=== PATIENT | female | born 1945 | race African-American/Black ===

== ENCOUNTER 2021-11-05 13:20 | Inpatient (IN) | payer MEDICARE, BC ==
[~2021-11-05] VITALS: Ht 157.5 cm; Wt 57.4 kg
[2021-11-05] MEDS ORDERED: SODIUM CHLORIDE 0.9% 1,000 ML IV ONE (14:15)
[2021-11-05 14:28] LABS: Basophils # (auto) 0.1 10 ^3/uL (0-0.2); Basophils % (auto) 1.5 % (0.0-2.0); Eosinophils # (auto) 0 10 ^3/uL (0-0.8); Eosinophils % (auto) 0.6 % (0.0-7.0); Hematocrit 36.3 % (36.0-46.0); Hemoglobin 11.7 g/dL (12.2-16.2); Lymphocytes # (auto) 1.1 10 ^3/uL (0.4-5.4); Mean Corpuscular Hgb Conc. 32.1 g/dL (32.0-36.0); Mean Corpuscular Volume 84.1 fL (80.0-100.0); Monocytes # (auto) 0.3 10 ^3/uL (0-1.3); Monocytes % (auto) 8.9 % (0.0-12.0); Neutrophils # (auto) 2.3 10 ^3/uL (1.6-8.6); Red Blood Cells 4.32 10^6/uL (4.0-5.20); Red Cell Distribution Width 14.7 % (11.8-14.3); White Blood Cell 3.9 10^3/uL (4.4-10.8)
[2021-11-05 14:41] LABS: Albumin 3.7 g/dL (3.4-5.0); Calcium 9.8 mg/dL (8.5-10.1); Potassium 3.8 mmol/L (3.5-5.1)
[2021-11-05 14:44] LABS: BUN/Creatinine Ratio 21.8; Bilirubin, Total 0.5 mg/dL (0.2-1.0); Total Protein 7.9 g/dL (6.4-8.2)
[2021-11-05 15:28] LABS: Urine Bacteria NONE SEEN /hpf (None Seen); Urine Blood Negative /uL (Negative); Urine Specific Gravity 1.022 (1.001-1.035); Urine WBC 20 /hpf (0 - 5)
[2021-11-05] MEDS ORDERED: cefTRIAXone 1GM/50ML D5W 50 ML IV ONE (16:00)
[2021-11-05] MEDS ORDERED: MORPHINE SULFATE INJECTION 2 MG/ML SYRG IV PRN ×2 (17:30→19:30)
[2021-11-05] MEDS ORDERED: NITROGLYCERIN 0.4 MG SL TAB SL PRN (17:30)
[2021-11-05] MEDS ORDERED: HYDROcodone-ACET 5/325MG TAB PO ONE (19:30)
[2021-11-05] MEDS ORDERED: FAMOTIDINE (10MG/ML) 2ML VL IV ONE (19:30)
[2021-11-05] MEDS ORDERED: ACETAMINOPHEN 325 MG TAB PO PRN (19:30)
[2021-11-05] MEDS ORDERED: LORazepam 0.5 MG TAB PO PRN (19:30)
[2021-11-05] MEDS ORDERED: DOCUSATE SOD 100 MG CAP PO PRN (19:30)
[2021-11-05] MEDS ORDERED: MIDODRINE HCL 10 MG TAB PO PRN (19:30)
[2021-11-05] MEDS ORDERED: ONDANSETRON HCL 4 MG/2 ML VIAL IV PRN (19:30)
[2021-11-05] MEDS ORDERED: hydrALAZINE HCL 20 MG/ML VL IV PRN (19:30)
[2021-11-05] MEDS ORDERED: HYDROcodone-ACET 5/325MG TAB PO PRN (19:30)
[2021-11-05 20:16] LABS: Magnesium 1.8 mg/dL (1.6-2.6)
[2021-11-05 20:19] LABS: Phosphorus 2.8 mg/dL (2.5-4.90)
[2021-11-05] MEDS: SODIUM CHLORIDE 0.9% 1,000 ML IV SCH ×2 (20:41→22:08)
[2021-11-05 21:09] LABS: INR 1.12 (0.9-1.15); Partial Thromboplastin Time 28.5 sec (23.6-33.0)
[2021-11-05 22:00] VITALS: BP 148/67
[2021-11-05] MEDS ORDERED: ATORVASTATIN 20 MG TAB PO SCH (22:00)
[2021-11-05] MEDS: ENOXAPARIN SOD 40 MG/0.4 ML SYRINGE SC SCH (22:09)
[2021-11-05] MEDS: AMANTADINE HCL 100 MG CAP PO SCH (22:31)
[2021-11-06] VITALS (9 sets, daily range): BP systolic 90–172; BP diastolic 52–92
[2021-11-06 05:58] LABS: Basophils # (auto) 0 10 ^3/uL (0-0.2); Basophils % (auto) 0.9 % (0.0-2.0); Eosinophils # (auto) 0 10 ^3/uL (0-0.8); Eosinophils % (auto) 0.7 % (0.0-7.0); Hematocrit 33.2 % (36.0-46.0); Hemoglobin 10.8 g/dL (12.2-16.2); Lymphocytes # (auto) 1.6 10 ^3/uL (0.4-5.4); Lymphocytes % (auto) 39.2 % (10.0-50.0); Mean Corpuscular Hemoglobin 27.2 pg (28.0-32.0); Mean Corpuscular Hgb Conc. 32.5 g/dL (32.0-36.0); Mean Corpuscular Volume 83.9 fL (80.0-100.0); Monocytes # (auto) 0.4 10 ^3/uL (0-1.3); Neutrophils % (auto) 50.2 % (37.0-80.0); Nucleated Red Blood Cells % 0.1 %; Red Blood Cells 3.96 10^6/uL (4.0-5.20); Red Cell Distribution Width 14.1 % (11.8-14.3); White Blood Cell 4.1 10^3/uL (4.4-10.8)
[2021-11-06 06:15] LABS: INR 1.12 (0.9-1.15)
[2021-11-06 06:22] LABS: BUN/Creatinine Ratio 23.4; Bilirubin, Total 0.5 mg/dL (0.2-1.0); CRP High Sensitivity 0.17 mg/dL (< 0.3); Phosphorus 2.5 mg/dL (2.5-4.90); Uric Acid 3.3 mg/dL (2.6-6.0)
[2021-11-06 06:26] LABS: Calcium 8.8 mg/dL (8.5-10.1)
[2021-11-06 06:30] LABS: Thyroid Stimulating Hormone 1.37 uIU/mL (0.358-3.74)
[2021-11-06 06:43] LABS: Albumin 3.2 g/dL (3.4-5.0); Magnesium 1.8 mg/dL (1.6-2.6); Potassium 3.8 mmol/L (3.5-5.1)
[2021-11-06 06:50] LABS: Prolactin 5.95 ng/mL (2.8-29.2)
[2021-11-06 06:51] LABS: Ferritin 182.5 ng/mL (10-322)
[2021-11-06] MEDS: CHOLECALCIFEROL (VITD3) 2,000 UNIT CAP/TAB PO SCH (08:29)
[2021-11-06] MEDS: AMANTADINE HCL 100 MG CAP PO SCH (08:29)
[2021-11-06] MEDS: cefTRIAXone 1GM/50ML D5W 50 ML IV SCH (08:30)
[2021-11-06] MEDS: ASPirin 81 mg TAB PO SCH (08:30)
[2021-11-06] MEDS ORDERED: FAMOTIDINE (10MG/ML) 2ML VL IV SCH (10:00)
[2021-11-06] MEDS: CARBIDOPA W LEVODOPA 25/100mg TABLET PO SCH (22:20)
[2021-11-06] MEDS: ENOXAPARIN SOD 40 MG/0.4 ML SYRINGE SC SCH (22:20)
[2021-11-07 05:00] VITALS: BP 137/63
[2021-11-07] MEDS: CARBIDOPA W LEVODOPA 25/100mg TABLET PO SCH ×2 (06:13→13:04)
[2021-11-07 07:12] LABS: Alcohol, Urine < 3.0 mg/dL (0-10); Amphetamine Screen, Urine NEGATIVE (NEGATIVE); Barbiturate Scree,Urine NEGATIVE (NEGATIVE); Benzodiazephine Screen, Urine NEGATIVE (NEGATIVE); Cannabinoid Screen, Urine NEGATIVE (NEGATIVE); Cocaine Screen, Urine NEGATIVE (NEGATIVE); Opiate Scree,Urine NEGATIVE (NEGATIVE); Phencyclidine Screen, Urine NEGATIVE (NEGATIVE)
[2021-11-07 07:41] LABS: Urine Bacteria NONE SEEN /hpf (None Seen); Urine Blood TRACE /uL (Negative); Urine Budding Yeast FEW /hpf (None Seen); Urine Hyaline Cast FEW /lpf (0 - 2); Urine Specific Gravity 1.025 (1.001-1.035); Urine WBC 27 /hpf (0 - 5)
[2021-11-07 08:00] VITALS: BP 123/73
[2021-11-07] MEDS: ASPirin 81 mg TAB PO SCH (08:46)
[2021-11-07] MEDS: CHOLECALCIFEROL (VITD3) 2,000 UNIT CAP/TAB PO SCH (08:46)
[2021-11-07] MEDS: cefTRIAXone 1GM/50ML D5W 50 ML IV SCH (08:46)
[2021-11-07] MEDS ORDERED: LEVO-28 PO (12:57)
[2021-11-07] MEDS ORDERED: CHOL1CAP47 PO (12:57)
[2021-11-07 14:36] VITALS: BP 123/73
== END 2021-11-07 15:39 | disposition home or self-care (01) | DRG 312 ==
LOC: EDBD 13:20 → ER 13:20 → OVERFLOW 17:20 → WEST WING 21:34 → TELE-WESTW 11-06 13:42
PROVIDERS: ADMIT Hospitalist; ATTEND Internal Medicine
DX: I95.1 Orthostatic hypotension (principal); N39.0 Urinary tract infection, site not specified; M48.54XA Collapsed vertebra, not elsewhere classified, thoracic region, initial encounter for fracture; D64.9 Anemia, unspecified; E88.09 Other disorders of plasma-protein metabolism, not elsewhere classified; G30.9 Alzheimer's disease, unspecified; F02.80 Dementia in other diseases classified elsewhere, unspecified severity, without behavioral disturbance, psychotic disturbance, mood disturbance, and anxiety; G20 Parkinson's disease; G24.9 Dystonia, unspecified; N20.9 Urinary calculus, unspecified; K57.30 Diverticulosis of large intestine without perforation or abscess without bleeding; F01.50 Vascular dementia, unspecified severity, without behavioral disturbance, psychotic disturbance, mood disturbance, and anxiety; K59.00 Constipation, unspecified; I10 Essential (primary) hypertension; Z20.822 Contact with and (suspected) exposure to COVID-19
CPT/HCPCS: 36415; 70450; 71045; 74176; 80053; 80061; 80307; 81001; 82306; 82550; 82728; 83036; 83615; 83690; 83735; 83880; 84100; 84146; 84443; 84484; 84550; 85025; 85379; 85610; 85652; 85730; 86141; 87040; 87086; 93005; 93306; 93886; 96361; 96365; 96375; 97163; G0378; J0696; J3490